=== PATIENT | female | born 1955 | race Caucasian/White ===

== ENCOUNTER 2021-01-27 11:51 | Emergency (ER) | payer MEDICARE, SELFPAY ==
--- NOTE | ~2021-01-27 | US_ITS ---
EXAMINATION: US venous doppler LE EXAM DATE: 01/27/2021 12:54 INDICATION: Right calf pain. TECHNIQUE: Multiple grayscale, color flow and Doppler images of the right lower extremity deep venous system obtained and reviewed. Comparison is made to prior examination from 01/27/2015. FINDINGS: RIGHT SIDE Common femoral: -------- Normal. Profunda femoral: ------- Normal. Femoral: Normal. Popliteal: Nonocclusive thrombus. Posterior tibial: ---------Thrombosed. Peroneal: Thrombosed. Gastrocnemius: Not visualized. Soleus: Not visualized. Greater saphenous: ----- Normal. Lesser saphenous: ------ Not visualized. IMPRESSION: Positive for right popliteal, PT and peroneal DVT. Reviewed, dictated and finalized at location B.
[2021-01-27 12:04] VITALS: BP 146/87; PULSE 94; RESP 16; TEMP 36.9; O2SAT 100
--- NOTE | 2021-01-27 12:15 | PC.NURSE ---
per pt, she stopped taking her eliquis without telling her doctor approx 3 mos ago
--- NOTE | 2021-01-27 12:30 | ED.GENADULT ---
HPI - General Adult General Chief complaint: Extremity Problem,Nontraumatic Stated complaint: Possible DVT Time Seen by Provider: 01/27/21 12:11 Source: RN notes reviewed History of Present Illness HPI narrative: Patient presents to the emerge department from home for right lower leg pain. Patient states symptoms been ongoing for the past 1 week with pain in the right anterior medial calf with radiation around to the posterior calf. Patient states that she did travel to [place] approximately 3 weeks ago. The patient has a history of DVTs and had been on Eliquis but stopped taking this during the pandemic as she had not been able to get in to see her physician she denies any fevers or chills, chest pain shortness of breath or any other symptoms she was recommended come to the ED by her PCP for evaluation for possible DVT Related Data Home Medications Medication Instructions Recorded Confirmed No Home Medications 01/27/21 01/27/21 Allergies Allergy/AdvReac Type Severity Reaction Status Date / Time No Known Allergies Allergy Verified 01/27/21 12:14 Review of Systems Review of Systems: Narrative: Gen.: Denies fevers or chills ENT: Denies congestion Respiratory: Denies shortness of breath or cough CV: Denies chest pain or palpitations GI: Denies abdominal pain nausea, emesis or diarrhea Musculoskeletal: See HPI Neuro: Denies numbness, tingling, weakness or focal weakness Skin: Denies rash Except as documented, all other systems reviewed and negative [facility] Past Medical History Medical History (Updated 01/27/21 @ 14:30 by Pradeep Marrufo DO) DVT (deep venous thrombosis) Family History Family History (Updated 01/29/16 @ 23:19 by DOCTOR UNKNOWN) Mother Hypertension Family history of arthritis Family history of diabetes mellitus in first degree relative Father Family history of Parkinson's disease Grandparent Diabetes mellitus Social History Social History (Updated 01/27/21 @ 12:31 by Pradeep Marrufo DO) Smoking status: Current every day smoker Alcohol intake: current Exam Narrative: Exam Narrative: APPEARANCE: No acute distress, nontoxic, resting in bed EYES: EOMI HEENT: Normocephalic, atraumatic RESPIRATORY: No respiratory distress Clear to auscultation bilaterally with no rhonchi wheezing or rales. CARDIOVASCULAR: Regular rate and rhythm without murmurs rubs or gallops. ABDOMINAL: Soft, nontender, nondistended MUSCULOSKELETAl: Moves all extremities. No clubbing, cyanosis or edema. No tenderness of the right hip knee or ankle full range of motion of all dorsalis pedis pulse 2+ neurovascular intact mild tenderness over the right medial posterior calf NEURO: Awake and alert. Following commands, speech normal, no focal deficits SKIN:: Warm, dry. No rashes lesions or abrasions PSYCHIATRIC: Normal affect/mood, Course Course Emergency Course: This patient states she had been on Eliquis performed past Discussed with Dr. Regan presentation work-up agrees with plan for discharge patient restarted on Eliquis Discussed with patient results of workup and diagnosis. Discussed need for follow-up with primary care, proper use of medication, and reasons to return to the emergency department. Patient understands and agrees to current treatment plan Vital Signs Vital signs: Vital Signs Temperature 98.5 F 01/27/21 12:04 Pulse Rate 94 01/27/21 12:04 Respiratory Rate 16 01/27/21 12:04 Blood Pressure 146/87 H 01/27/21 12:04 Pulse Oximetry 100 01/27/21 12:04 Temperature 98.5 F 01/27/21 12:04 Pulse Rate 94 01/27/21 12:04 Respiratory Rate 16 01/27/21 12:04 Blood Pressure 146/87 H 01/27/21 12:04 Pulse Oximetry 100 01/27/21 12:04 Medical Decision Making Vital Signs Vital Signs: Vital Signs Temperature 98.5 F 01/27/21 12:04 Pulse Rate 94 01/27/21 12:04 Respiratory Rate 16 01/27/21 12:04 Blood Pressure 146/87 H 01/27/21 12:04 Pulse Oximetry 100
[2021-01-27 13:35] LABS: Basophils Absolute Auto 0.1 K/mm3 (0.0-0.1); Basophils Percent Auto 0.8 % (0.2-1.2); Eosinophils Absolute Auto 0.2 K/mm3 (0-0.3); Hematocrit 47.9 % (37.0-47.0); Hemoglobin 15.5 g/dL (12.0-15.0); Immature Granulocyte Absolute 0.03 K/mm3 (0.00-0.031); Immature Granulocyte Percent A 0.3 % (0-0.5); Lymphocytes Absolute Auto 3.28 K/mm3 (0.9-3.2); Lymphocytes Percent Auto 31.6 % (18.3-44.2); Mean Corpuscular HGB Conc 32.4 g/dl (32-36); Mean Corpuscular Hemoglobin 29.4 pg (26-34); Mean Corpuscular Volume 90.9 fl (80-100); Monocytes Absolute Auto 0.7 K/mm3 (0.1-0.6); Monocytes Percent Auto 6.5 % (2.6-8.5); Neutrophils Absolute Auto 6.1 K/mm3 (1.3-6.7); Neutrophils Percent Auto 58.8 % (45.5-73.1); Platelet Count Result 250 k/mm3 (150-375); Red Blood Count 5.27 M/mm3 (4.2-5.4); Red Cell Distribution Width 13.4 % (11.5-14.5); White Blood Count 10.4 K/mm3 (4.5-10.0)
[2021-01-27 13:44] LABS: INR 0.9; Prothrombin Time 12.1 Seconds (11.1-14.7)
[2021-01-27 13:45] LABS: Partial Thromboplastin Time 23.6 SECONDS (22.3-36.8)
[2021-01-27 14:01] LABS: Alanine Aminotransferase 15 U/L (4-35); Albumin Level 4.4 g/dL (3.5-5.1); Alkaline Phosphatase 123 U/L (38-126); Anion Gap 8 mmol/L (8-16); Aspartate Amino Transferase 19 U/L (14-36); Bilirubin,Total 0.5 mg/dL (0.2-1.3); Blood Urea Nitrogen 11 mg/dL (7-17); Calcium 9.7 mg/dL (8.4-10.2); Carbon Dioxide 25 mmol/L (22-30); Chloride 106 mmol/L (98-107); Estimated CRCL calculation 64 ml/min; Estimated Glomerular Filt Rate > 60; Glucose 180 mg/dL (65-110); Potassium 4.4 mmol/L (3.4-5.0); Sodium 139 mmol/L (137-145)
[2021-01-27] MEDS: APIXABAN 5 MG TABLET 10 MG PO (14:07)
[2021-01-27 14:45] VITALS: BP 146/83; PULSE 76; RESP 14; O2SAT 99
== END 2021-01-27 14:47 | disposition home or self-care (01) ==
PROVIDERS: Emergency Provider Emergency Medicine; PCP Internal Medicine
DX: I82.461 Acute embolism and thrombosis of right calf muscular vein (principal); Z86.718 Personal history of other venous thrombosis and embolism
CPT/HCPCS: 36415; 80053; 85025; 85610; 85730; 93971; 99284; A9270

== ENCOUNTER 2022-01-25 15:05 | Outpatient (CLI) | payer MEDICARE, SELFPAY ==
--- NOTE | ~2022-01-25 | MM_ITS ---
EXAMINATION: MM screening ben BI w nick HISTORY: Screening mammogram TECHNIQUE: Craniocaudal and mediolateral oblique 3-D tomosynthesis images were obtained and synthetic 2-D images were generated. CAD analysis was submitted and interpreted. COMPARISON: 04/09/2013 and 04/2012 bilateral screening mammogram examinations BREAST PARENCHYMAL COMPOSITION: There are scattered areas of fibroglandular density. FINDINGS: Scattered bilateral benign calcifications. There is no evidence of suspicious mass, calcifi cation, or architectural distortion to suggest malignancy in either breast. There has been no suspici ous interval change. IMPRESSION: 1. No mammographic evidence of malignancy. 2. Recommend routine screening mammography in one year. BI-RADS Category 2: Benign finding(s). Reviewed, dictated and finalized at location A.
--- NOTE | ~2022-01-25 | XR_ITS ---
EXAM: XR cervical spine 4-5V DATE: 01/25/2022 15:32 HISTORY: M54.2 - Cervicalgia . COMPARISON: None available. FINDINGS: Craniocervical association and atlantoaxial joint are normal. No prevertebral soft tissue swelling. Reversed lordosis centered at C3-4. 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 1 mm anterolisthesis of C3 on C4. 3 mm anterolisthesis of C4 on C5. No range of motion in extension image. No alignment c hange in flexion. Mild C4-5 and moderate C6-7 degenerative change. Moderate arthropathy in the upper and lower cervical spine. 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 No dynamic listhesis in flexion. Limited range of motion in extension. Reviewed, dictated and finalized at location K. 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 No dynamic listhesis in f lexion. Limited range of motion in extension.
== END 2022-01-25 15:06 | disposition home or self-care (01) ==
PROVIDERS: PCP Physician Assistant; Visit Provider Physician Assistant
DX: Z12.31 Encounter for screening mammogram for malignant neoplasm of breast (principal); M54.2 Cervicalgia; M43.12 Spondylolisthesis, cervical region
CPT/HCPCS: 72050; 77063; 77067

== ENCOUNTER 2022-05-02 19:06 | Observation (INO) | payer MEDICARE, SELFPAY ==
[2022-05-02] VITALS (7 sets, daily range): BP systolic 138–159; BP diastolic 62–127; PULSE 91–107; RESP 18–30; TEMP 35.4–36.5; O2SAT 89–100
--- NOTE | ~2022-05-02 | CT_ITS ---
EXAMINATION: CTA chest PE protocol DATE: 05/02/2022 20:59 INDICATION: hypoxic, cough, tachy, +ddimer TECHNIQUE: Computed tomography angiography (CTA) of the chest was performed with 100 mL Omnipaque-350 intravenous contrast timed to evaluate the pulmonary arteries. Coronal maximum intensity projection 3D-reconstructions were created by the technologist. The dose-length product (DLP) was 450.21 mGy-cm. Automated exposure control and iterative reconstruction technique were employed. COMPARISON: 04/04/2012, x-ray chest 05/02/2022. FINDINGS: Lung parenchyma and airways: Emphysematous change. Right basilar scarring.. Pleura: Unremarkable. Thoracic inlet, axillae and chest wall: Unremarkable. Thoracic aorta: Mild arch calcification. Mediastinum: Small hiatal hernia. Heart and pericardium: Normal. Coronary artery calcifications: Absent. Upper abdomen: No significant finding. Bones: No acute osseous finding. Pulmonary arteries: Study quality: Adequate. No pulmonary emboli detected. IMPRESSION: No CT evidence of acute pulmonary embolus. Reviewed, dictated and finalized at location K.
--- NOTE | ~2022-05-02 | XR_ITS ---
EXAMINATION: XR chest 1V portable Exam Date/Time: 05/02/2022 19:50 CDT HISTORY: hypoxic, cough, HX OF BLOOD CLOTS, Comparison: 07/31/2011 and CTPA 04/04/2012. RESULT: Lines, tubes, and devices: None. Lungs and pleura: Emphysematous and senescent change. Cardiomediastinal silhouette: Stable. Other: No acute osseous or upper abdominal finding. IMPRESSION: No acute cardiopulmonary process. Reviewed, dictated and finalized at location K.
--- NOTE | ~2022-05-02 | CT_ITS ---
EXAMINATION: CT abdomen pelvis wo con DATE: 05/03/2022 04:18 INDICATION: Lactic acidosis. TECHNIQUE: Computed tomography (CT) of the abdomen and pelvis was performed without intravenous contr ast. Automated exposure control and iterative reconstruction technique were employed. The dose-length product was 695.57 mGy-cm. COMPARISON: Chest CT 05/02/2022 FINDINGS: The visualized portions of the lung bases demonstrate mild atelectasis. No pleural effusion . The heart size is normal. No pericardial effusion. There is diffuse hepatic steatosis. Calcificatio ns in the liver and spleen are consistent with old granulomatous disease. There is contrast in the ga llbladder, which is normal in size. The pancreas, adrenal glands are normal. There is cortical thinni ng of the kidneys. The appendix is normal. There are no dilated loops of bowel. There is mild left pa ra-aortic lymphadenopathy. There is an umbilical hernia containing fat. There is no free intraperiton eal fluid. There is severe lower lumbar spondylosis. IMPRESSION: 1. Diffuse hepatic steatosis. 2. Mild left para-aortic lymphadenopathy, likely reactive. 3. Umbilical hernia containing fat. Reviewed, dictated and finalized at location A.
--- NOTE | 2022-05-02 19:21 | ECG_ITS ---
Measurements Intervals [place] Rate: 99 P: 110 GA: 161 QRS: 121 QRSD: 94 T: 110 QT: 348 QTc: 448 Interpretive Statements SINUS RHYTHM ARM LEADS REVERSED BASELINE ARTIFACT- I, II, III, AVR, AVL, AVF, V1-V2, V4-V6 ATYPICAL ECG NO PREVIOUS ECG AVAILABLE FOR COMPARISON Electronically Signed On 05-03-2022 6:36:19 CDT by Curtis Aleman D.O.
--- NOTE | 2022-05-02 19:29 | ED.ALLEREA ---
HPI - Allergic Reaction General Chief complaint: Allergic Reaction Stated complaint: allergic reaction Time Seen by Provider: 05/02/22 19:16 History of Present Illness HPI narrative: The last 2 days patient has been having cough, runny nose, and congestion with difficulty breathing, she took some amoxicillin that her had been prescribed earlier and subsequently had a bout of nausea, and felt an itchy rash on her abdomen. She was given a dose of Zofran and Benadryl by EMS found to be in severe respiratory distress, tripoding, diaphoretic. Related Data Home Medications Medication Instructions Recorded Confirmed omega 0-fnh-ofo-fish oil 1,000 mg 1 cap PO DAILY 11/25/21 11/26/21 (120 mg-180 mg) capsule (Fish Oil) Allergies Allergy/AdvReac Type Severity Reaction Status Date / Time No Known Allergies Allergy Verified 11/25/21 09:40 Review of Systems Review of Systems: CONST: Chills. HEENT: No sore throat or tongue swelling C/V: No chest pain RESP: Cough, trouble breathing GI: Nausea, diarrhea : No dysuria. M/S: No joint pain. SKIN: Generalized itchy rash NEURO: [No headache or focal numbness or weakness] PSYCH: [No depression] [facility] Past Medical History Medical History DVT (deep venous thrombosis) Family History Family History Mother Hypertension Family history of arthritis Family history of diabetes mellitus in first degree relative Father Family history of Parkinson's disease Grandparent Diabetes mellitus Social History Social History Smoking packs per day: 1 Smoking cigarettes per day: 20.0 Years smoked: 30 Smoking pack-years: 30.00 Smoking status: Current every day smoker Tobacco type: cigarettes Alcohol intake: current Exam Narrative: EXAMINATION OF ORGAN SYSTEMS/BODY AREAS: Constitutional: Vital signs per nursing GENERAL: Coughing, appears slightly uncomfortable HEAD: Normal with no signs of head trauma. EYES: EOMI, conjunctiva normal ENT: No tongue swelling or voice changes LUNGS: Distant lung sounds, tachypneic HEART: Tachycardic ABD: [Soft], [nontender to palpation] EXT: Normal range of motion SKIN: Maculopapular rash to trunk NEURO: [Alert and oriented x 3. No gross focal sensory or strength deficits.] PSYCH: Normal affect Course Vital Signs Vital signs: Vital Signs Pulse Rate 107 H 05/02/22 19:13 Respiratory Rate 30 H 05/02/22 19:13 Blood Pressure 159/127 H 05/02/22 19:13 Pulse Oximetry 89 L 05/02/22 19:13 Oxygen Delivery Room Air 05/02/22 19:13 Temperature 97.7 F 05/02/22 21:56 Pulse Rate 95 05/03/22 00:34 Respiratory Rate 14 05/03/22 00:34 Blood Pressure 145/62 H 05/02/22 23:10 Pulse Oximetry 96 05/02/22 23:10 Oxygen Delivery Nasal Cannula 05/02/22 20:31 Oxygen Flow Rate 4 05/02/22 20:31 MDM - Allergic Reaction MDM Narrative Medical decision making narrative: MEDICAL DECISION MAKING AND COURSE IN THE ED WITH INTERPRETATION/REVIEW OF DIAGNOSTIC STUDIES: Electronic medical record was reviewed. Patient presented to the ED with a complaint of suspected allergic reaction which started shortly after she took some of her 's azithromycin for her 3 days of cough. Vitals notable for hypoxia, tachypnea, tachycardia. Physical exam revealed [pruritic rash without evidence of airway compromise, abdominal tenderness]. Based on the patient's history and physical exam, my differential includes but is not limited to [allergic reaction, pneumonia, PE]. [Patient already given zofran and benadryl en route and placed on O2; I did give her famotidine, steroids, and start her on breathing treatments and IV fluids here]. I did also obtain work-up to make sure she had no pneumonia or pulmonary embolism to cause her symptoms. Doubt cardiac etiology without chest pain and
[2022-05-02] MEDS: FAMOTIDINE 20 MG/2 ML VIAL IV PUSH (19:33)
[2022-05-02] MEDS: SODIUM CHLORIDE 0.9% IV 1,000 ML 999 ML IV CONT (19:33)
[2022-05-02 19:52] LABS: Basophils Percent Auto 0.2 % (0.2-1.2); Eosinophils Absolute Auto 0.1 K/mm3 (0-0.3); Eosinophils Percent Auto 0.5 % (0-4.4); Hematocrit 52.2 % (37.0-47.0); Hemoglobin 16.6 g/dL (12.0-15.0); Immature Granulocyte Percent A 0.6 % (0-0.5); Lymphocytes Absolute Auto 5.01 K/mm3 (0.9-3.2); Lymphocytes Percent Auto 29.4 % (18.3-44.2); Mean Corpuscular HGB Conc 31.8 g/dl (32-36); Mean Corpuscular Hemoglobin 29.7 pg (26-34); Mean Corpuscular Volume 93.4 fl (80-100); Monocytes Absolute Auto 0.6 K/mm3 (0.1-0.6); Monocytes Percent Auto 3.6 % (2.6-8.5); Neutrophils Absolute Auto 11.2 K/mm3 (1.3-6.7); Neutrophils Percent Auto 65.7 % (45.5-73.1); Platelet Count Result 264 k/mm3 (150-375); Red Blood Count 5.59 M/mm3 (4.2-5.4); Red Cell Distribution Width 13.6 % (11.5-14.5)
[2022-05-02 20:04] LABS: Lactic Acid Reflex 2.7 mmol/L (0.7-2.0)
[2022-05-02 20:05] LABS: Alanine Aminotransferase 22 U/L (6-35); Albumin Level 4.1 g/dL (3.5-5.1); Alkaline Phosphatase 142 U/L (38-126); Anion Gap 11 mmol/L (8-16); Aspartate Amino Transferase 23 U/L (14-36); Bilirubin,Total 0.7 mg/dL (0.2-1.3); Blood Urea Nitrogen 14 mg/dL (7-17); Calcium 8.9 mg/dL (8.4-10.2); Carbon Dioxide 24 mmol/L (22-30); Chloride 102 mmol/L (98-107); Estimated CRCL calculation 55 ml/min; Estimated Glomerular Filt Rate 55; Glucose 381 mg/dL (65-110); Potassium 3.6 mmol/L (3.4-5.0); Sodium 137 mmol/L (137-145)
[2022-05-02 20:16] LABS: D Dimer 0.83 ug/mL (<0.48)
[2022-05-02 20:30] LABS: SARS-CoV-2 RNA PCR Negative
[2022-05-02] MEDS: LACTATED RINGERS 1,000 ML 999 ML IV CONT (20:35)
[2022-05-02 20:41] LABS: NT Pro B Type Natriuretic Pept 184 pg/mL (5-100)
[2022-05-02 21:02] LABS: Influenza A QL RT-PCR Negative (Negative); Influenza B QL RT-PCR Negative (Negative)
[2022-05-02] MEDS: ALBUTEROL SULFATE NEB 2.5 MG/3 ML INH 15 MG INHALATION (21:39)
[2022-05-02] MEDS: IPRATROPIUM BR 0.02% INH SOLN 0.5 MG/2.5 ML VIAL 1 MG INHALATION (21:40)
[2022-05-02 22:47] LABS: Reflex Lactic Acid Yes or No Add Lactic
[2022-05-02 23:49] LABS: Lactic Acid 3.4 mmol/L (0.7-2.0)
--- NOTE | 2022-05-02 23:53 | PC.NURSE ---
pt to be discharged. rn in room pt awake and talking sating 86 percent on room air. erp notified. pt placed back in 4LNC.
[2022-05-03] VITALS (8 sets, daily range): BP systolic 103–137; BP diastolic 52–60; PULSE 72–97; RESP 12–20; TEMP 36.4–36.6; O2SAT 96–99; BMI 30.2
--- NOTE | 2022-05-03 00:19 | PM.IMHP ---
H&P: HPI History of Present Illness Date/Time: 05/03/22 00:19 Chief Complaint: shortness of breath, nausea and diaphoresis Narrative: 67-year-old female past medical history significant for 40+ pack-year history of smoking, multiple blood clots on lifetime Eliquis is presenting with nausea, diarrhea, diaphoresis, headache and shortness of breath. Patient states she had a few days URI symptoms including cough, runny nose, sore throat and decided to take some of her 's amoxicillin. She states she has had penicillin many times in her life without any issues. Shortly after taking the amoxicillin, she developed a rash, diaphoresis and dyspnea. Upon arriving to the ER, she was given Zofran, epinephrine, racemic epinephrine, Decadron, Benadryl, IV fluids and noted to be tripoding in severe respiratory distress. She required 4 L nasal cannula to bring her pulse ox above 90%. At this time, she is resting comfortably on 4L. She denies any chest pain, fevers or chills. Chest x-ray and CTA done in the ER were negative for PE, pneumonia or any vascular congestion. 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 Review of Systems Review of Systems: 12 point review of systems was assessed and was negative except as noted in the HPI [facility] Past Medical History Medical History COPD (chronic obstructive pulmonary disease) DVT (deep venous thrombosis) Pulmonary embolism Family History Family History Mother Hypertension Family history of arthritis Family history of diabetes mellitus in first degree relative Father Family history of Parkinson's disease Grandparent Diabetes mellitus Social History Social History Smoking packs per day: 1 Smoking cigarettes per day: 20.0 Years smoked: 30 Smoking pack-years: 30.00 Smoking status: Current every day smoker Alcohol intake: current Substance use: never Has the Lack of Transportation Kept You From Medical Appointments or From Getting Medications?: No Within the Past 12 Months, Were You Worried Whether Your Food Would Run Out Before You Got Money to Buy More?: Never True What is Your Housing Situation Today?: I Have Housing Are You Worried That in the Next 2 Months, You May Not Have Your Own Housing to Live In?: No Do You Have Trouble Paying Your Heating Or Electricity Bill?: No Do You Have Trouble Paying For Medicines?: No Are You Currently Unemployed and Looking for Work?: No Highest Level of Education Completed: High School Diploma/GED Do You Have Trouble With Childcare or the Care of a Family Member?: No Spiritual care concerns: No Meds Home Medications and Allergies Home Medications Medication Instructions Recorded Confirmed Type fluticasone propionate 50 2 spray intranasal DAILY #16 grams 04/27/21 11/26/21 Rx mcg/actuation nasal spray,suspension (Flonase Allergy Relief) omega 2-cet-net-fish oil 1,000 mg 1 cap PO DAILY 11/25/21 11/26/21 History (120 mg-180 mg) capsule (Fish Oil) apixaban 5 mg tablet (Eliquis) 5 mg PO BID #180 tabs 04/27/22 Rx albuterol sulfate 90 mcg/actuation 1 inh inhalation QID PRN shortness 05/02/22 Rx aerosol inhaler of breath or wheezing #8.5 grams epinephrine 0.3 mg/0.3 mL 0.3 mg (0.3 mL) IM Q5-15M PRN 05/02/22 Rx injection, auto-injector (EpiPen) anaphylaxis #2 ea famotidine 20 mg tablet 20 mg PO DAILY #14 tabs 05/02/22 Rx loratadine 10 mg tablet (Claritin) 10 mg PO DAILY #10 tabs 05/02/22 Rx ondansetron 4 mg disintegrating 4 mg PO Q8H PRN nausea and 05/02/22 Rx tablet vomiting #10 tabs prednisone 50 mg tablet 50 mg PO DAILY #4 tabs 05/02/22 Rx Allergies Allergy/AdvReac Type Agnieszka
[2022-05-03] MEDS: EPINEPHrine HCL INJ 1 MG/ML AMPUL 0.3 MG IM (00:26)
[2022-05-03] MEDS: racEPINEPHrine 2.25% NEBU SOLN 0.5 ML VIAL.NEB INHALATION (00:30)
--- NOTE | 2022-05-03 02:31 | ADMGEN ---
This patient, Herlinda Flanagan, was admitted to 3 Med Surg Room 304-01. Patient/family oriented to hospital policies and general routines including ID bracelet, bed and alarms, visiting hours, pain management, procedures, bathroom and other care routines, personal items, smoking policy, room service/diet, and visiting hours. Information on how to activate the Rapid Response Team has been discussed. Patient/Family are encouraged to report perceived risks to care and to ask questions if they do not understand what they are told or what they should do.
[2022-05-03 03:24] LABS: Lactic Acid Reflex 6.3 mmol/L (0.7-2.0)
[2022-05-03 06:10] LABS: Basophils Percent Auto 0.2 % (0.2-1.2); Hematocrit 41.6 % (37.0-47.0); Hemoglobin 13.1 g/dL (12.0-15.0); Immature Granulocyte Absolute 0.05 K/mm3 (0.00-0.031); Immature Granulocyte Percent A 0.4 % (0-0.5); Lymphocytes Absolute Auto 1.14 K/mm3 (0.9-3.2); Lymphocytes Percent Auto 8.9 % (18.3-44.2); Mean Corpuscular HGB Conc 31.5 g/dl (32-36); Mean Corpuscular Volume 95.2 fl (80-100); Mean Platelet Volume 10.1 fl (7.4-10.4); Monocytes Absolute Auto 0.3 K/mm3 (0.1-0.6); Monocytes Percent Auto 2.4 % (2.6-8.5); Neutrophils Absolute Auto 11.3 K/mm3 (1.3-6.7); Neutrophils Percent Auto 88.1 % (45.5-73.1); Platelet Count Result 188 k/mm3 (150-375); Red Blood Count 4.37 M/mm3 (4.2-5.4); Red Cell Distribution Width 13.5 % (11.5-14.5); White Blood Count 12.8 K/mm3 (4.5-10.0)
[2022-05-03 06:57] LABS: Alanine Aminotransferase 33 U/L (6-35); Albumin Level 3.4 g/dL (3.5-5.1); Alkaline Phosphatase 92 U/L (38-126); Anion Gap 10 mmol/L (8-16); Aspartate Amino Transferase 23 U/L (14-36); Bilirubin,Total 0.4 mg/dL (0.2-1.3); Blood Urea Nitrogen 14 mg/dL (7-17); Calcium 7.8 mg/dL (8.4-10.2); Carbon Dioxide 19 mmol/L (22-30); Chloride 109 mmol/L (98-107); Estimated CRCL calculation 61 ml/min; Estimated Glomerular Filt Rate > 60; Glucose 395 mg/dL (65-110); Potassium 4.3 mmol/L (3.4-5.0); Sodium 138 mmol/L (137-145)
[2022-05-03 07:22] LABS: Hemoglobin A1C 8.7 % (<5.7)
[2022-05-03 09:04] LABS: Glucose Point of Care 338 mg/dl (65-105)
[2022-05-03] MEDS: APIXABAN 5 MG TABLET PO ×2 (09:30→21:09)
[2022-05-03] MEDS: FAMOTIDINE 20 MG/2 ML VIAL IV PUSH ×2 (09:31→21:09)
[2022-05-03] MEDS: INSULIN ASPART (*BKC) 100 UNITS/ML SUB-Q ×3 (09:32→22:11)
[2022-05-03] MEDS: SODIUM CHLORIDE 0.9% IV 1,000 ML 125 ML IV CONT (09:32)
[2022-05-03 11:33] LABS: Glucose Point of Care 321 mg/dl (65-105)
[2022-05-03 12:33] LABS: Lactic Acid Reflex 2.5 mmol/L (0.7-2.0)
[2022-05-03] MEDS: methylPREDNISolone SOD SUCC 125 MG VIAL 60 MG IV PUSH ×2 (13:54→17:30)
[2022-05-03 15:20] LABS: Reflex Lactic Acid Yes or No Add Lactic
--- NOTE | 2022-05-03 15:26 | PM.IMPN ---
Progress Note: A&P Assessment and Plan (1) Respiratory failure: Code(s): J96.90 - Respiratory failure, unspecified, unspecified whether with hypoxia or hypercapnia Status: Acute Assessment and Plan: unsure of etiology, thought to be a bronchospastic reaction secondary to allergic reaction, also with underlying early COPD suspected, will attempt to wean oxygen and monitor closely, no signs of infection noted at this time duonebs as needed 05/03/2022 interval history: 67-year-old female presented emergency department with complaint of shortness of breath diaphoresis secondary to allergic reaction to amoxicillin though patient has taken amoxicillin in the past, patient was treated with Zofran epinephrine, racemic epinephrine Decadron, Benadryl and Pepcid patient states feeling much better compared to when she arrived denies any shortness of breath or difficulty with swallowing, plan is to continue present management with steroid, Pepcid, Benadryl and nebulizer, will reassess patient tomorrow if remains clinically stable may discharge patient home. (2) Allergic reaction: Code(s): T78.40XA - Allergy, unspecified, initial encounter Status: Acute Assessment and Plan: suspected allergic reaction to penicillin, continue Pepcid, Benadryl and Solu-Medrol (3) Hyperglycemia: Code(s): R73.9 - Hyperglycemia, unspecified Status: Acute Assessment and Plan: no history of diabetes, could be induced by the dexamethasone given the ER, will check an A1c and Accu-Cheks and sliding scale insulin for now (4) Lactic acidosis: Code(s): E87.20 - Acidosis, unspecified Status: Acute Assessment and Plan: unsure of etiology of the acidosis, lactic acid went from 2-6, currently receiving another IV fluid bolus another recheck lactate is pending (5) Tobacco use: Code(s): Z72.0 - Tobacco use Status: Chronic Assessment and Plan: recommend smoking cessation, counseling greater than 5 minutes occurred (6) Hyperlipidemia: Code(s): E78.5 - Hyperlipidemia, unspecified Status: Chronic Assessment and Plan: not on a statin at this time Plan DVT prophylaxis with Eliquis GI prophylaxis not indicated Code status full code Subjective Date/time seen: 05/03/22 15:26 HPI-Narrative: 67-year-old female past medical history significant for 40+ pack-year history of smoking, multiple blood clots on lifetime Eliquis is presenting with nausea, diarrhea, diaphoresis, headache and shortness of breath.? Patient states she had a few days URI symptoms including cough, runny nose, sore throat and decided to take some of her 's amoxicillin.? She states she has had penicillin many times in her life without any issues. ? Shortly after taking the amoxicillin, she developed a rash, diaphoresis and dyspnea.? Upon arriving to the ER, she was given Zofran,? epinephrine, racemic epinephrine, Decadron, Benadryl,? IV fluids and noted to be tripoding in severe respiratory distress.? She required 4 L nasal cannula to bring her pulse ox above 90%.? At this time, she is resting comfortably on 4L.? She denies any chest pain, fevers or chills.? Chest x-ray and CTA done in the ER were negative for PE, pneumonia or any vascular congestion.? 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 05/03/2022 interval history: 67-year-old female presented emergency department with complaint of shortness of breath diaphoresis secondary to allergic reaction to amoxicillin though patient has taken amoxicillin in the past, patient was treated with Zofran epinephrine, racemic epinephrine Decadron, Benadryl and Pepcid patient states feeling much better compared to when she arrived denies any shortness of breath or difficulty with swallowing, plan is to continue present management with briseyda
[2022-05-03 16:41] LABS: Glucose Point of Care 179 mg/dl (65-105)
[2022-05-03 16:46] LABS: Lactic Acid 2.1 mmol/L (0.7-2.0)
[2022-05-03 22:33] LABS: Glucose Point of Care 293 mg/dl (65-105)
--- NOTE | 2022-05-04 00:22 | PC.NURSE ---
Pt had a blood sugar of 293. Pt was treated with 4 units Novolog. Pt resting comfortably. Pt verbalizes no needs at this time. Pt has no complaints of pain. Pt participated and contributed in plan of care. Will continue to monitor pt.
[2022-05-04] MEDS: methylPREDNISolone SOD SUCC 125 MG VIAL 60 MG IV PUSH ×2 (00:55→08:25)
[2022-05-04] MEDS: SODIUM CHLORIDE 0.9% IV 1,000 ML 125 ML IV CONT ×2 (00:56→08:26)
[2022-05-04 05:44] VITALS: BP 151/80; PULSE 72; RESP 20; TEMP 37.1; O2SAT 91
[2022-05-04 06:48] LABS: Basophils Percent Auto 0.1 % (0.2-1.2); Hematocrit 40.3 % (37.0-47.0); Hemoglobin 12.8 g/dL (12.0-15.0); Immature Granulocyte Absolute 0.07 K/mm3 (0.00-0.031); Immature Granulocyte Percent A 0.5 % (0-0.5); Lymphocytes Absolute Auto 1.83 K/mm3 (0.9-3.2); Lymphocytes Percent Auto 12.6 % (18.3-44.2); Mean Corpuscular HGB Conc 31.8 g/dl (32-36); Mean Corpuscular Hemoglobin 29.4 pg (26-34); Mean Corpuscular Volume 92.6 fl (80-100); Mean Platelet Volume 10.5 fl (7.4-10.4); Monocytes Absolute Auto 0.3 K/mm3 (0.1-0.6); Monocytes Percent Auto 1.9 % (2.6-8.5); Neutrophils Absolute Auto 12.4 K/mm3 (1.3-6.7); Neutrophils Percent Auto 84.9 % (45.5-73.1); Platelet Count Result 200 k/mm3 (150-375); Red Blood Count 4.35 M/mm3 (4.2-5.4); Red Cell Distribution Width 13.7 % (11.5-14.5); White Blood Count 14.6 K/mm3 (4.5-10.0)
[2022-05-04 06:51] LABS: Alanine Aminotransferase 56 U/L (6-35); Albumin Level 3.8 g/dL (3.5-5.1); Alkaline Phosphatase 102 U/L (38-126); Anion Gap 7 mmol/L (8-16); Aspartate Amino Transferase 54 U/L (14-36); Bilirubin,Total 0.5 mg/dL (0.2-1.3); Blood Urea Nitrogen 15 mg/dL (7-17); Calcium 8.7 mg/dL (8.4-10.2); Carbon Dioxide 24 mmol/L (22-30); Chloride 108 mmol/L (98-107); Estimated CRCL calculation 68 ml/min; Estimated Glomerular Filt Rate > 60; Glucose 285 mg/dL (65-110); Potassium 4.6 mmol/L (3.4-5.0); Sodium 139 mmol/L (137-145)
[2022-05-04] MEDS: INSULIN ASPART (*BKC) 100 UNITS/ML SUB-Q (08:24)
[2022-05-04] MEDS: FAMOTIDINE 20 MG/2 ML VIAL IV PUSH (08:25)
[2022-05-04] MEDS: APIXABAN 5 MG TABLET PO (08:25)
[2022-05-04 08:27] LABS: Glucose Point of Care 262 mg/dl (65-105)
--- NOTE | 2022-05-04 09:51 | PM.DS ---
DS: Admitting Diagnosis Discharge Date 05/04/2022 Admitting Diagnosis ?shortness of breath, nausea and diaphoresis DS: Discharge Diagnosis Discharge Diagnosis (1) Respiratory failure: Code(s): J96.90 - Respiratory failure, unspecified, unspecified whether with hypoxia or hypercapnia Status: Acute Assessment and Plan: unsure of etiology, thought to be a bronchospastic reaction secondary to allergic reaction, also with underlying early COPD suspected, will attempt to wean oxygen and monitor closely, no signs of infection noted at this time duonebs as needed 05/03/2022 interval history: 67-year-old female presented emergency department with complaint of shortness of breath diaphoresis secondary to allergic reaction to amoxicillin though patient has taken amoxicillin in the past, patient was treated with Zofran epinephrine, racemic epinephrine Decadron, Benadryl and Pepcid patient states feeling much better compared to when she arrived denies any shortness of breath or difficulty with swallowing, plan is to continue present management with steroid, Pepcid, Benadryl and nebulizer, will reassess patient tomorrow if remains clinically stable may discharge patient home. (2) Allergic reaction: Qualifiers: Encounter type: subsequent encounter Qualified Code(s): T78.40XD - Allergy, unspecified, subsequent encounter Code(s): T78.40XA - Allergy, unspecified, initial encounter Status: Acute Assessment and Plan: suspected allergic reaction to penicillin, continue Pepcid, Benadryl and Solu-Medrol (3) Hyperglycemia: Code(s): R73.9 - Hyperglycemia, unspecified Status: Acute Assessment and Plan: no history of diabetes, could be induced by the dexamethasone given the ER, will check an A1c and Accu-Cheks and sliding scale insulin for now (4) Lactic acidosis: Code(s): E87.20 - Acidosis, unspecified Status: Acute Assessment and Plan: unsure of etiology of the acidosis, lactic acid went from 2-6, currently receiving another IV fluid bolus another recheck lactate is pending (5) Tobacco use: Code(s): Z72.0 - Tobacco use Status: Chronic Assessment and Plan: recommend smoking cessation, counseling greater than 5 minutes occurred (6) Hyperlipidemia: Code(s): E78.5 - Hyperlipidemia, unspecified Status: Chronic Assessment and Plan: not on a statin at this time Plan DVT prophylaxis with Eliquis GI prophylaxis not indicated Code status full code DS: Summary Hospital Course Reason for hospitalization: Chief Complaint: ?shortness of breath, nausea and diaphoresis Narrative: 67-year-old female past medical history significant for 40+ pack-year history of smoking, multiple blood clots on lifetime Eliquis is presenting with nausea, diarrhea, diaphoresis, headache and shortness of breath.? Patient states she had a few days URI symptoms including cough, runny nose, sore throat and decided to take some of her 's amoxicillin.? She states she has had penicillin many times in her life without any issues. ? Shortly after taking the amoxicillin, she developed a rash, diaphoresis and dyspnea.? Upon arriving to the ER, she was given Zofran,? epinephrine, racemic epinephrine, Decadron, Benadryl,? IV fluids and noted to be tripoding in severe respiratory distress.? She required 4 L nasal cannula to bring her pulse ox above 90%.? At this time, she is resting comfortably on 4L.? She denies any chest pain, fevers or chills.? Chest x-ray and CTA done in the ER were negative for PE, pneumonia or any vascular congestion.? 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 Hospital Course: ?67-year-old female presented emergency department with complaint of shortness of breath diaphoresis secondary to allergic reaction to
== END 2022-05-04 11:00 | disposition home or self-care (01) ==
LOC: ANHED 23:56 → ANH3MEDSUR 05-03 02:15
PROVIDERS: Admitting Provider Student in an Organized Health Care Education/Training Program; Emergency Provider Emergency Medicine; PCP Physician Assistant; Visit Provider Family Medicine
DX: J96.90 Respiratory failure, unspecified, unspecified whether with hypoxia or hypercapnia (principal); T36.0X5A Adverse effect of penicillins, initial encounter; Y92.009 Unspecified place in unspecified non-institutional (private) residence as the place of occurrence of the external cause; R73.9 Hyperglycemia, unspecified; E87.20 Acidosis, unspecified; F17.210 Nicotine dependence, cigarettes, uncomplicated; E78.5 Hyperlipidemia, unspecified; K76.0 Fatty (change of) liver, not elsewhere classified; R59.1 Generalized enlarged lymph nodes; K42.9 Umbilical hernia without obstruction or gangrene; R11.0 Nausea; L27.0 Generalized skin eruption due to drugs and medicaments taken internally; J44.9 Chronic obstructive pulmonary disease, unspecified; F10.90 Alcohol use, unspecified, uncomplicated; Z20.822 Contact with and (suspected) exposure to COVID-19; Z86.718 Personal history of other venous thrombosis and embolism; Z86.711 Personal history of pulmonary embolism; Z79.51 Long term (current) use of inhaled steroids; Z79.52 Long term (current) use of systemic steroids; Z79.01 Long term (current) use of anticoagulants; Z79.899 Other long term (current) drug therapy; Z84.89 Family history of other specified conditions; Z82.49 Family history of ischemic heart disease and other diseases of the circulatory system
CPT/HCPCS: 36415; 71045; 71275; 74176; 80053; 82948; 83036; 83605; 83880; 85025; 85380; 87040; 87502; 93005; 94640; 96361; 96372; 96374; 96375; 96376; 99285; A9270; G0378; J0171; J1100; J1815; J2930; J7030; J7120; Q9967; U0003; U0005